=== PATIENT | female | born 1980 | race Hispanic/Latino ===

== ENCOUNTER 2024-06-03 17:24 | Emergency (ER) | payer SELFPAY ==
[2024-06-03] MEDS ORDERED: TDAP (DIPHTH,PERTUSS(ACELL),TET VAC) 0.5 ML VIAL IMVAC ONE (18:43)
[2024-06-03] MEDS ORDERED: LIDOCAINE 2% W/EPI 1:200,000 MPF 20 ML VIAL IM ONE (18:43)
--- NOTE | 2024-06-03 20:08 | RAD REPORT ---
Exam: XR Forearm Right Clinical history: laceration;Pain Technique: Radiographic views of the right forearm. Findings: No acute fracture or dislocation seen. Mild degenerative changes at the thumb base and scaphomultangu lar articulation. Soft tissue swelling and irregularity along the distal volar forearm.
--- NOTE | 2024-06-03 20:24 | ER ---
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 Coronavirus screen: At this time, the client does not indicate any symptoms associated with coronavirus-19. Ebola Screen: No symptoms or risks identified at this time. Complicating Factors: There are no complicating factors for this patient. Initial Sepsis Screen: Does the patient meet any 2 criteria? No. Patient's initial sepsis screen is negative. Does the patient have a suspected source of infection? No. Patient's initial sepsis screen is negative. Risk Assessment: Do you want to hurt yourself or someone else? Patient reports no desire to harm self or others. Onset of symptoms was June 03, 2024. 17:52 Method Of Arrival: Ambulatory iw 17:52 Acuity: AVILA 4 iw Historical: - Allergies: 17:55 No Known Allergies; iw - Home Meds: 17:55 None [Active]; iw - PMHx: 17:55 None; iw - Infectious Disease History:: Denies. Screenin:25 [facility] ED Fall Risk Assessment (Adult) History of falling in the last 3 months, iw including since admission No falls in past 3 months (0 pts) Confusion or Disorientation No (0 pts) Intoxicated or Sedated No (0 pts) Impaired Gait No (0 pts) Mobility Assist Device Used No (0 pt) Altered Elimination No (0 pt) Score/Fall Risk Level 0 - 2 = Low Risk Oriented to surroundings, Maintained a safe environment. Abuse screen: Denies threats or abuse. Nutritional screening: No deficits noted. Tuberculosis screening: No symptoms or risk factors identified. Assessment: 17:52 General: Appears in no apparent distress. Behavior is calm, cooperative. Pain: iw Complains of pain in right wrist. Neuro: Level of Consciousness is awake, alert, obeys commands, Oriented to person, place, time, situation, Moves all extremities. Cardiovascular: Patient's skin is warm and dry. Respiratory: Respiratory effort is even, unlabored, Respiratory pattern is regular, symmetrical. Derm: Skin is intact, is healthy with good turgor. Musculoskeletal: Range of motion: intact in all extremities. Injury Description: Laceration sustained to right wrist is clean, 2.6 to 7.5 cm long, is bleeding a small amount. 18:40 General: Appears uncomfortable, Behavior is calm, cooperative. Pain: Complains of pain aa5 in right forearm. Neuro: Level of Consciousness is awake, alert, obeys commands, Oriented to person, place, time, situation. Cardiovascular: Patient's skin is warm and dry. Respiratory: Airway is patent Respiratory effort is even, unlabored, Respiratory pattern is regular, symmetrical. GI: No signs and/or symptoms were reported involving the gastrointestinal system. : No signs and/or symptoms were reported regarding the genitourinary system. EENT: No signs and/or symptoms were reported regarding the EENT system. Derm: Skin is pink, warm \T\ dry. Musculoskeletal: Range of motion: intact in all extremities. Injury Description: Laceration sustained to right forearm is clean, 2.6 to 7.5 cm long, not bleeding. 19:18 General: Appears in no apparent distress. Behavior is calm, cooperative. Pain: al5 Complains of pain in right wrist. Neuro: Level of Consciousness is awake, alert, obeys commands, Oriented to person, place, time, situation. Cardiovascular: Capillary refill < 3 seconds Patient's skin is warm and dry. Respiratory: Airway is patent Respiratory effort is even, unlabored, Respiratory pattern is regular, symmetrical. GI: No signs and/or symptoms were reported involving the gastrointestinal system. : No signs and/or symptoms were reported regarding the genitourinary system. EENT: No signs and/or symptoms were reported regarding the EENT system. Derm: laceration to R wrist with minimal bleeding. Musculoskeletal: Range of motion: intact in all extremities. Vital Signs: 17:52 BP 146 / 92; Pulse 79; Resp 16; Temp 97.4; Pulse Ox 98% on R/A; Weight 95.25 kg; Height iw 5 ft. 9 in. ; 20:27 BP 135 / 87; Pulse 71; Resp 16; Pulse Ox 99% ; al5 17:52 Body Mass Index 31.01 (95.25 kg, 175.26 cm) iw ED Course: 17:25 Patient arrived in ED. im 17:29 Bharathi Mcfadden DO is Attending Physician. ms3 17:53 Triage completed. iw 18:04 Arm band placed on Patient placed in an exam room, on a stretcher. ll1 18:25 Patient has correct armband on for positive identification. Provided Education on: lac iw repair. 18:34 Cynthia Martinez RN is Primary Nurse. aa5 19:04 Report given to DAYANA Barron. aa5 19:22 Forearm Right XRAY In Process Unspecified. EDMS 19:56 Assist provider with laceration repair on right wrist that was 2.5 cm. or less using al5 sutures. Set up tray. Performed by Bharathi Mcfadden DO Dressed with Neosporin, Patient tolerated well. Patient did not have IV access during this emergency room visit. 20:00 Wound care: to laceration located on right wrist was cleaned with Hibiclens, soaked in al5 normal saline solution, dressed with Neosporin, Patient tolerated well. 20:23 Ridge Godoy DO is Referral Physician. ms3 Administered Medications: 18:49 Drug: Boostrix Tdap IM 0.5 ml IM once; as a single dose Route: IM; Site: right deltoid; aa5 20:22 Follow up: Response: (VIS) Vaccine information sheet provided today. Questions and/or al5 concerns addressed. VIS edition date: Sep 29, 2020.; No adverse reaction 20:22 Drug: Lidocaine-Epinephrine Infiltration -1%: (1:100,000) 10 ml 20 ml Infiltration al5 once; to bedside {Note: given by provider .} Volume: 20 ml; Route: Infiltration; 20:22 Follow up: Response: No adverse reaction al5 Medication: 18:49 Vaccine Information Statement (VIS) provided today. Questions and/or concerns aa5 addressed. VIS edition date: September 29, 2020. Outcome: 20:24 Discharge ordered by . ms3 20:27 Discharged to home ambulatory, with significant other, al5 20:27 Condition: good 20:27 Discharge instructions given to patient, Instructed on discharge instructions, follow up and referral plans. Demonstrated understanding of instructions, follow-up care, 20:30 Patient left the ED. al5 Signatures: Dispatcher [employer] Qing Mcnally, RN DAYANA iw Cynthia Martinez RN RN aa5 Hunter Kaufman RN RN ll1 Bharathi Mcfadden DO DO ms3 Carolina Srinivasan Amanda RN RN al5 Corrections: (The following items were deleted from the chart) 17:56 17:52 BP 146 / 92; Pulse 79bpm; Resp 16bpm; Pulse Ox 98% RA; Temp 97.4F; iw 06/04 00:01 04 21:56 Assist provider with laceration repair on right wrist that was 2.5 cm. or al5 less using sutures. Set up tray. Performed by Bharathi Mcfadden DO Dressed with Neosporin, Patient tolerated well. al06/04 00:01 06/03 21:56 Patient did not have IV access during this emergency room visit. al5 al5
--- NOTE | 2024-06-03 20:24 | EDPHYS ---
Physician Documentation [facility] Name: Lucrecia Reeves Age: 44 yrs Sex: Female : 1980 Arrival Date: 06/03/2024 Time: 17:24 Bed 9 Private MD: ED Physician Bharathi Mcfadden HPI: 06/03 22:23 This 44 yrs old Female presents to ER via Ambulatory with complaints of ms3 Laceration To Arm. 22:23 44-year-old female with no past medical history presents to the emergency department ms3 for laceration to the right distal forearm. Patient states she was moving the arm on a wine bottle on [place] when the arm broke causing her to sliced her arm. Patient states this occurred 1 hour prior to arrival. She rates her discomfort a 5/10.. Historical: - Allergies: 17:55 No Known Allergies; iw - Home Meds: 17:55 None [Active]; iw - PMHx: 17:55 None; iw - Infectious Disease History:: Denies. ROS: 22:23 Constitutional: Negative for fever, and chills. Cardiovascular: Negative for chest ms3 pain, and palpitations. Respiratory: Negative for shortness of breath, cough, wheezing, and pleuritic chest pain, Abdomen/GI: Negative for abdominal pain, nausea, vomiting, diarrhea, and constipation, MS/Extremity: Negative for injury and deformity, 22:23 Skin: Positive for laceration(s), Exam: 22:23 Constitutional: This is a well developed, well nourished patient who is awake, alert, ms3 and in no acute distress. Cardiovascular: Regular rate and rhythm with a normal S1 and S2. No gallops, murmurs, or rubs. Normal PMI, no JVD. No pulse deficits. Respiratory: Lungs have equal breath sounds bilaterally, clear to auscultation and percussion. No rales, rhonchi or wheezes noted. No increased work of breathing, no retractions or nasal flaring. Abdomen/GI: Soft, non-tender, with normal bowel sounds. No distension or tympany. No guarding or rebound. No evidence of tenderness throughout. 22:23 Skin: 4 cm right forearm linear laceration. Vital Signs: 17:52 BP 146 / 92; Pulse 79; Resp 16; Temp 97.4; Pulse Ox 98% on R/A; Weight 95.25 kg; Height iw 5 ft. 9 in. ; 20:27 BP 135 / 87; Pulse 71; Resp 16; Pulse Ox 99% ; al5 17:52 Body Mass Index 31.01 (95.25 kg, 175.26 cm) iw Laceration: 20:22 Wound Repair of 4cm ( 1.6in ) subcutaneous laceration to right forearm. Linear shaped.. ms3 Distal neuro/vascular/tendon intact. Anesthesia: Local anesthetic administered with 4 mls of 2% Lidocaine with epi. Wound prep: Wound irrigation by me. Skin closed with 9 5-0 Prolene using simple sutures and sterile technique. Dressed with Neosporin. Patient tolerated well. MDM: 18:12 Medical Screening Exam initiated ms3 22:23 Differential diagnosis: superficial laceration. Data reviewed: vital signs, nurses ms3 notes, radiologic studies, and as a result, I will discharge patient. I considered the following discharge prescriptions or medication management in the emergency department Medications were administered in the Emergency Department. See MAR. Independent interpretation of the following test(s) in the Emergency Department X-Ray: My interpretation is Right forearm x-ray read image reviewed by me does not reveal radiopaque foreign body. Counseling: I had a detailed discussion with the patient and/or guardian regarding the historical points, exam findings, and any diagnostic results supporting the discharge/admit diagnosis, radiology results, the need for outpatient follow up, to return to the emergency department if symptoms worsen or persist or if there are any questions or concerns that arise at home. Special discussion: I discussed with the patient/guardian in detail that at this point there is no indication for admission to the hospital. It is understood, however, that if the symptoms persist or worsen the patient needs to return immediately for re-evaluation. ED course: Discussed wound care with patient. Patient to follow-up with primary care physician in 10 to 14 days for suture removal. Patient understands and agrees with plan. Questions were answered. Return precautions discussed include worsening symptoms, or any other concerns. 06/03 18:35 Order name: Forearm Right XRAY; Complete Time: 20:22 ms3 06/03 18:39 Order name: Dressing - Wound; Complete Time: 20:23 ms3 06/03 18:39 Order name: Gloves, Sterile; Complete Time: 18:49 ms3 06/03 18:39 Order name: Prolene, Sutures; Complete Time: 18:49 ms3 06/03 18:39 Order name: Setup Suture Tray; Complete Time: 18:49 ms3 Administered Medications: 18:49 Drug: Boostrix Tdap IM 0.5 ml IM once; as a single dose Route: IM; Site: right deltoid; aa5 20:22 Follow up: Response: (VIS) Vaccine information sheet provided today. Questions and/or al5 concerns addressed. VIS edition date: Sep 29, 2020.; No adverse reaction 20:22 Drug: Lidocaine-Epinephrine Infiltration -1%: (1:100,000) 10 ml 20 ml Infiltration al5 once; to bedside {Note: given by provider .} Volume: 20 ml; Route: Infiltration; 20:22 Follow up: Response: No adverse reaction al5 Disposition Summary: 06/03/24 20:24 Discharge Ordered Notes: Location: Home ms3 Condition: Stable ms3 Diagnosis - Arm Laceration Right/Open wound forearm ms3 Followup: ms3 - With: Ridge Godoy DO - When: 10 - 14 days - Reason: Staple/Suture removal Discharge Instructions: - Discharge Summary Sheet ms3 - Laceration Care, Adult, [id number] ms3 Forms: - Medication Reconciliation Form ms3 - Antibiotic Education ms3 - Prescription Opioid Use ms3 - Patient Portal Instructions ms3 - Leadership Thank You Letter ms3 Signatures: Dispatcher [employer] Qing Mcnally, DAYANA ANNE iw Cynthia Martinez RN RN aa5 Bharathi Mcfadden DO DO ms3 Beatrice Rodriguez RN RN al5 Corrections: (The following items were deleted from the chart) 18:36 18:36 Forearm Right+[email or web address] ordered. EDMS EDMS
[2024-06-03 21:16] VITALS: BP 146/92; TEMP 97.4; O2SAT 98
== END 2024-06-03 20:30 | disposition home or self-care (01) ==
LOC: ER 17:24
DX: S51.811A Laceration without foreign body of right forearm, initial encounter (principal); W26.8XXA Contact with other sharp object(s), not elsewhere classified, initial encounter
CPT/HCPCS: 90715; 96372; 99284